=== PATIENT | female | born 1950 | race Caucasian/White ===

== ENCOUNTER → 2017-01-19 | Day surgery (SDC) | payer MEDICARE ==
--- NOTE | 2017-01-18 18:34 | MH ---
cc: JAYDEN MCCANN DATE OF ADMISSION 01/19/2017 ADMISSION DIAGNOSIS Herniated nucleus pulposus L4-5. HISTORY This patient is a 66-year-old white female who has had 9 to 10 months of increasing back, hip and left leg pain. The patient is living in [place], [place]. She was walking her dog and fell on some concrete on the sidewalk. The patient developed hip and leg pain. An MRI scan showed evidence of a disk herniation at L4-5. The patient has had conservative care of this condition, but she is considered a surgical candidate because of a large extruded disc herniation on top of preexisting moderate to severe spinal stenosis. She presents for surgical treatment. PAST MEDICAL HISTORY, SOCIAL HISTORY AND FAMILY HISTORY Some see attached notes. REVIEW OF SYSTEMS See attached notes. PHYSICAL EXAMINATION VITAL SIGNS: 5 feet 6 inches, 191 pounds, BMI 31. Blood pressure 140/84. HEENT: Normocephalic, atraumatic. Pupils equal, round, reactive to light and accommodation. Extraocular motions intact. NECK: Supple. CHEST: Clear. HEART: Regular rate rhythm. ABDOMEN: Soft, nontender, normoactive bowel sounds. MUSCULOSKELETAL: Thoracolumbar spine restricted motion. Well-healed incision is seen. [id number] severely positive on the left in the sitting and supine position. Altered sensation in the left L5 distribution. Motor examination shows weakness of the left extensor halluces longus. IMPRESSION 1. Lumbar spinal stenosis L4-L5. 2. Herniated nucleus pulposus L4-5, extruded, left. PLAN Lumbar laminectomy left L4, L5, lateral recess decompression, partial bilateral laminectomy, resection herniated nucleus pulposus, use of dilation port and microscope. CONSENT The risks of surgery including infection, bleeding, loss of motion, continued pain, need for further surgery, neurologic and vascular injury. The patient understands these issues and wishes to press on with surgery as outlined above. MD CALEB Heck/IVETH /6:04 PM /6:15 PM
[~2017-01-19] VITALS: Ht 167.6 cm; Wt 88.9 kg
[~2017-01-19] MED LIST: ACETAMINOPHEN 1000 MG/100 ML VIAL IV ONE; ACETAMINOPHEN/HYDROcodone 325 MG/7.5 MG TAB PO PRN; ASPI-110 PO; BETAMETHASONE SOD PHOS/ACETATE SUSP 30 MG/5 ML VIAL OTHER ONE; BUPIVACAINE/EPINEPHRINE 0.25% PF 30 ML VIAL INFIL ONE; CHLORHEXIDINE GLUCONATE 2 % 1 PACK (2 CLOTHS) TOPICAL PRN; CYMB60CA PO; DO NOT ADM ANY ANTICOAGULANT DRUGS PRN; EMPA1TAB3 PO; ENAL20TA PO; FAMOTIDINE 20 MG/2 ML VIAL ONE; GELATIN 12 MM/7 MM FOAM ONE; GENTAMICIN SULFATE 80 MG/2 ML VIAL ONE; HYDR-3288 PO; HYDR-3516 PO; INSULIN HUMAN REGULAR 1,000 UNITS/10 ML VIAL SQ PRN; KETOROLAC TROMETHAMINE 60 MG/2 ML (IM) VIAL IM ONE; LACTATED RINGER'S 1000 ML INJ 1,000 ML IV ONE; LACTATED RINGER'S 1000 ML IV PRN; LACTATED RINGER'S 1000 ML IV SCH; MAGN500T4 PO; METF500T4 PO; METOPROLOL TARTRATE 25 MG TAB PO PRN; MIDAZOLAM HCL 2 MG/2 ML VIAL ONE; MORPHINE SULFATE 4 MG/ML INJ IV PUSH PRN; NEOSTIGMINE METHYLSULFATE 10 MG/10 ML VIAL IV PUSH ONE; ONDANSETRON HCL 4 MG/2 ML VIAL IV PUSH ONE; PHENYLEPH/NS 1000 MCG/10 ML SYR IV ONE; POVIDONE IODINE 5% (ANTISEPSIS KIT) 4 APPLICATIONS EACH NARE PRN; POVIDONE IODINE 7.5% SCRUB 118 ML BOTTLE TOPICAL SCH; PROPOFOL 200 MG/20 ML AMP IV ONE; SITA100T PO; SITA25 PO; SODIUM CHLORID 0.9% 500 ML IV PRN; SODIUM CHLORIDE 10 ML FLUSH BID IV FLUSH SCH; SODIUM CHLORIDE 10 ML FLUSH PRN IV FLUSH; VITATAB11 PO; WELLTAB39 PO; ceFAZolin 2 GM PREMIX 50 ML IV SCH; ePHEDrine/NS 25 MG/5 ML SYR IV ONE; fentaNYL CITRATE 250 MCG/5 ML AMP ONE
[2017-01-19 07:14] VITALS: BP 115/69; PULSE 93; RESP 18; TEMP 98.9; O2SAT 97
--- NOTE | 2017-01-19 10:10 | PD.OP ---
cc: Jesse Hernadez. Operative Report Date of Surgery: January 19, 2017 Preoperative Diagnosis: Lumbar spinal stenosis, L4 5, moderate to severe. Herniated nucleus pulposus, L4 5, left, extruded. Left lumbosacral radiculopathy Postoperative Diagnosis: Same Procedure: Lumbar laminectomy L4 5 from the left, lateral recess decompression, partial bilateral laminectomy, resection herniated nucleus pulposus. Use of dilation port and microscope Anesthesia: Gen. Surgeon: Jesse Hernadez Computer Numerical Control Programmer(s): CAROLYN Robles Operation and Findings: EBL: Minimal cc INDICATION: This patient is a 66-year-old female with significant back left hip and leg pain. Investigative studies shows evidence of a moderate to high-grade spinal stenosis L4 5. There is evidence of a disc herniation at and below the disc space creating additional nerve root compression and lateral recess stenosis. The patient presents for surgical treatment NOTE: Chanelle Robles PA-C was present for the entire surgical procedure as my pathology assistant. In my medical opinion her skill and care was necessary for the proper management of this patient. PROCEDURE: The patient was brought to the operating room and anesthetized in the supine position. The patient was rolled to a prone position on a Drake frame on a Schuyler table. All pressure points were protected in the back was scrubbed with alcohol followed by Hibiclens followed by ChloraPrep and draped sterilely. A timeout was done and antibiotics were given. AP and lateral radiographic images were used to identify the proper levels and perform skin markings. We started from the left side at the L4 5 level. A paramedian incision was made and an off-midline fascial incision was made. A dilating system was placed down to the interlaminar space and held provisionally to the side of the table. The microscope was brought into the field. A high-speed bur under the microscope was used to perform a partial bilateral laminectomy from that side. A lateral recess decompression predominantly to the left side was accomplished using straight and angled Kerrison punches. A partial medial facetectomy was accomplished. The crossing and exiting nerve roots were completely decompressed. There was a disc herniation at and below the disc space with a sequestered fragment below the disc space to the left of midline. This was resected. An annulotomy was necessary. Small fragments of disc at the annulus were found. The wound was irrigated copiously. A small piece of Gelfoam with Celestone was placed into the epidural space. Hemostasis was controlled. The deep fascia was approximated with interrupted 0 Vicryl suture subcutaneous suture with 2-0 Vicryl suture and skin with running intradermal 3-0 Vicryl followed by Dermabond. A field block with local anesthesia was utilized. A sterile dressing was applied. The sponge count and needle counts and instrument counts were all correct. The patient tolerated the procedure well as taken to the recovery room in satisfactory condition. FINDINGS: Was evidence of a high-grade lateral recess stenosis with a moderate central stenosis and a large sequestered disc herniation with multiple fragments. The decompression was very satisfactory. No complication was noted Jesse Hernadez MD January 19, 2017 10:10
[2017-01-19 12:01] VITALS: BP 139/92; PULSE 83; RESP 18; TEMP 97.5; O2SAT 97
--- NOTE | 2017-01-19 14:29 | RADRPT ---
EXAM DATE/TIME: 01/19/2017 09:30 [facility] COMPARISON: No previous studies available for comparison. INDICATIONS : L4-L5 lumbar laminectomy. Level localization. MEDICAL HISTORY : None. SURGICAL HISTORY : None. ENCOUNTER: Initial ACUITY: 1 day PAIN SCORE: Non-responsive. LOCATION: Lumbar spine. FINDINGS: Single lateral view obtained in the operating room shows posterior instrumentation at L4/L5. CONCLUSION: Marker is at L4/L5. Hans Perez MD on January 19, 2017 at 14:27 Board Certified Radiologist. This report was verified electronically.
== END | disposition home or self-care (01) ==
LOC: HSDC 05:54
PROVIDERS: ATTEND Orthopaedic Surgery Orthopaedic Surgery of the Spine
DX: M48.06 Spinal stenosis, lumbar region (principal); M51.26 Other intervertebral disc displacement, lumbar region; Y92.480 Sidewalk as the place of occurrence of the external cause; Y93.K1 Activity, walking an animal
CPT/HCPCS: 00630; 63030; 72020; 76000; J0131; J0690; J0702; J1580; J1885; J2250; J2370; J2405; J2710; J3010; J7120